=== PATIENT | female | born 1980 | race Caucasian/White ===

== ENCOUNTER → 2017-09-06 | Outpatient (CLI) | payer OTHER ==
[~2017-09-06] MED LIST: Adipex-P37.5 MG PO; CYCL10 PO; DIPATR PO; EYE DROP; HEATHER0.35 MG PO; IBUP800 PO; NITR100CA PO; Norco 5-325 Ta1 EACH PO; ONDA4ODT MM; OXYACE5T PO; PROM25 PO; Percocet 5-3251 EACH PO; SHAROBEL0.35 MG PO; TRAM50 PO; Triamcinolone A15 G3 TOP; Ultram50 MG PO; Verotin-Gr Cap1 EACH PO; Zofran Odt4 MG SL
== END ==
LOC: LAB SHORT 08:50 → PLD 08:50
DX: N90.89 Other specified noninflammatory disorders of vulva and perineum (principal)
CPT/HCPCS: 88305

== ENCOUNTER 2021-12-01 10:22 | Day surgery (SDC) | payer OTHER ==
[~2021-12-01] VITALS: Ht 165.1 cm; Wt 84.7 kg
[~2021-12-01 10:22] MED LIST changes: +AMOX250 PO
--- NOTE | 2021-12-01 11:24 | NUR ---
12/01/21 1124 Urmila Meyers History, Chart, Medications and Allergies reviewed before start of procedure. Patient confirms NPO status and agrees with scheduled surgery. 3-LEAD EKG REVIEWED WITH PHYSICIAN PRIOR TO START OF PROCEDURE. MONITOR INTACT WITH CONTINUOUS PULSE OXIMETRY AND INTERMITTENT BP. PATIENT DETERMINED TO BE ASA APPROPRIATE FOR PROPOFOL SEDATION PRIOR TO START OF PROCEDURE BY .
--- NOTE | 2021-12-01 12:37 | NUR ---
DISCHARGE SUMMARY PT A&OX4, VSS/RA, JANETT PO, DENIES PAIN, AMB STAND PIVOT TO WC, LEFT WITH DC VOLUNTEER TO GO HOME WITH , WITH ALL PERSONAL POSSESSIONS INCLUDING DC PACKET. IV DC'D.
== END 2021-12-01 12:40 | disposition home or self-care (01) ==
LOC: ORSCMMR 10:22
PROVIDERS: Student in an Organized Health Care Education/Training Program
PROC: 0DBN8ZX Excision of Sigmoid Colon, Via Natural or Artificial Opening Endoscopic, Diagnostic (ICD-10-PCS; principal; 2021-12-01 11:30)
PROC: 0DBK8ZX Excision of Ascending Colon, Via Natural or Artificial Opening Endoscopic, Diagnostic (ICD-10-PCS; principal; 2021-12-01 11:30)
DX: Z12.11 Encounter for screening for malignant neoplasm of colon (principal); D12.2 Benign neoplasm of ascending colon; K64.4 Residual hemorrhoidal skin tags; K57.30 Diverticulosis of large intestine without perforation or abscess without bleeding; Z80.0 Family history of malignant neoplasm of digestive organs; Z86.010 Personal history of colon polyps; F17.210 Nicotine dependence, cigarettes, uncomplicated
CPT/HCPCS: 88305; J2250; J2704; J7120

== ENCOUNTER → 2022-03-17 | Outpatient (CLI) | payer OTHER ==
[2022-03-17 18:15] LABS: Source, Urine Voided
[2022-03-17 19:13] LABS: Amorphous Heavy (0-Heavy); Bacteria Rare /hpf; Red Blood Cells, Urine 0-2 /hpf (0-2); Squamous Epithelial Cells Few /hpf (Few); White Blood Cells, Urine 0-2 /hpf (0-5)
== END | disposition home or self-care (01) ==
LOC: LAB SHORT 14:45 → LAB 14:45
PROVIDERS: Nurse Practitioner Family
DX: R31.9 Hematuria, unspecified (principal)
CPT/HCPCS: 81015

== ENCOUNTER → 2023-09-05 | Outpatient (CLI) | payer OTHER ==
[2023-09-10 08:47] LABS: HPV GENOTYPE 16 Not Detected; HPV GENOTYPE 18 Not Detected; HPV HIGH RISK Not Detected; HPV SOURCE Cervical
== END ==
LOC: LAB 14:20 → LAB SHORT 14:20
PROVIDERS: Nurse Practitioner Family
DX: Z01.419 Encounter for gynecological examination (general) (routine) without abnormal findings (principal)
CPT/HCPCS: 87624; G0123